=== PATIENT | female | born 1980 | race Caucasian/White ===

== ENCOUNTER 2016-10-15 04:49 | Emergency (ER) | payer OTHER | END 2016-10-15 07:25 | disposition home or self-care (01) | LOC: ER 04:49 | DX: K52.9 Noninfective gastroenteritis and colitis, unspecified (principal); I10 Essential (primary) hypertension; Z79.899 Other long term (current) drug therapy | CPT/HCPCS: 36415; 80307 ==

== ENCOUNTER 2016-10-15 20:58 | Emergency (ER) | payer OTHER | END 2016-10-16 01:05 | disposition short-term general hospital (02) | LOC: ER 20:58 | DX: N17.9 Acute kidney failure, unspecified (principal); R18.8 Other ascites; E86.0 Dehydration; I95.9 Hypotension, unspecified; D64.9 Anemia, unspecified; D72.829 Elevated white blood cell count, unspecified; I10 Essential (primary) hypertension; Z79.899 Other long term (current) drug therapy | CPT/HCPCS: 36415; 96361; 96365; 96366; 96367; 96375 ==